=== PATIENT | male | born 1965 | race Caucasian/White ===

== ENCOUNTER → 2019-05-11 13:39 | Outpatient (BNVA) | payer MEDICARE, MEDICAID, SELFPAY | PROVIDERS: PCP Nurse Practitioner Family; Visit Provider Anesthesiology | DX: M54.16 Radiculopathy, lumbar region (principal); M79.651 Pain in right thigh; M79.652 Pain in left thigh; F17.220 Nicotine dependence, chewing tobacco, uncomplicated; Z79.891 Long term (current) use of opiate analgesic; Z71.6 Tobacco abuse counseling | CPT/HCPCS: 99214 ==

== ENCOUNTER 2019-06-15 07:53 | Outpatient (CLI) | payer MEDICARE, MEDICAID, SELFPAY ==
--- NOTE | 2019-06-15 | US_ITS ---
WS: [id number] ULTRASOUND ABDOMEN LIMITED CLINICAL INFORMATION: RUQ PAIN COMPARISON: None. FINDINGS: Technically limited examination due to overlying bowel gas. Liver Size: Hepatomegaly. Craniocaudal length: 17.8 cm. Echogenicity: Coarse hepatic echogenicity consistent with fatty infiltration. Surface nodularity: None. Mass (size and location): None. Gallbladder Normal as visualized Gallstones: None. Gallbladder sludge: None. Gallbladder wall thickening: None. Pericholecystic fluid: None. Sonographic Peralta sign: Absent. Pancreas Not well seen Right kidney: Normal. Hydronephrosis: None. Size: 11.3 cm x 5.1 cm x 5.5 cm. Abdominal aorta and IVC Visualized portions are normal. Ascites: None. US/US abdomen limited [id number] IMPRESSION: 1. Hepatomegaly with diffuse fatty infiltration. 2. Gallbladder normal as visualized. 3. Common bile duct not visualized. 4. No hydronephrosis in right kidney.
== END 2019-06-15 07:54 | disposition home or self-care (01) ==
LOC: RADWPI 07:59
PROVIDERS: PCP Nurse Practitioner Family; Visit Provider Nurse Practitioner Family
DX: R10.11 Right upper quadrant pain (principal); K76.0 Fatty (change of) liver, not elsewhere classified
CPT/HCPCS: 76705

== ENCOUNTER 2019-07-04 11:52 | Outpatient (CLI) | payer MEDICARE, MEDICAID, SELFPAY ==
--- NOTE | 2019-07-04 11:58 | XR_ITS ---
WS: [id number] XR chest 2V* [id number] REASON FOR EXAM: PERSISTENT COUGH FINDINGS: The heart and mediastinal interfaces are normal. The lung martell are well aerated no pneumonia, pleural effusion, pulmonary edema, or mass effect. The hilum and apices are normal. No osseous abnormalities. XR/XR chest 2V* [id number] IMPRESSION: No acute pulmonary infiltrates.
== END 2019-07-04 11:53 | disposition home or self-care (01) ==
LOC: RAD 11:56
PROVIDERS: PCP Nurse Practitioner Family; Visit Provider Nurse Practitioner Family
DX: R05 Cough (principal)
CPT/HCPCS: 71046

== ENCOUNTER → 2019-08-02 10:22 | Outpatient (BNVA) | payer MEDICARE, MEDICAID, SELFPAY | PROVIDERS: PCP Nurse Practitioner Family; Visit Provider Anesthesiology | DX: M54.16 Radiculopathy, lumbar region (principal); M54.9 Dorsalgia, unspecified; F17.220 Nicotine dependence, chewing tobacco, uncomplicated; Z79.891 Long term (current) use of opiate analgesic; Z71.6 Tobacco abuse counseling | CPT/HCPCS: 99214 ==

== ENCOUNTER → 2019-10-18 09:48 | Outpatient (BNVA) | payer MEDICARE, MEDICAID, SELFPAY | PROVIDERS: PCP Nurse Practitioner Family; Visit Provider Anesthesiology | DX: M54.42 Lumbago with sciatica, left side (principal); M54.41 Lumbago with sciatica, right side; M54.16 Radiculopathy, lumbar region; M54.9 Dorsalgia, unspecified; F17.220 Nicotine dependence, chewing tobacco, uncomplicated; Z79.891 Long term (current) use of opiate analgesic | CPT/HCPCS: 99213; 99214 ==

== ENCOUNTER → 2019-12-07 14:53 | Outpatient (BNVA) | payer MEDICARE, MEDICAID, SELFPAY | PROVIDERS: PCP Nurse Practitioner Family; Referring Provider Nurse Practitioner Family; Visit Provider Internal Medicine | DX: E11.319 Type 2 diabetes mellitus with unspecified diabetic retinopathy without macular edema (principal); E11.43 Type 2 diabetes mellitus with diabetic autonomic (poly)neuropathy; E66.9 Obesity, unspecified; E78.5 Hyperlipidemia, unspecified; K31.84 Gastroparesis; R63.5 Abnormal weight gain | CPT/HCPCS: 99205 ==

== ENCOUNTER → 2019-12-21 09:44 | Outpatient (BNVA) | payer MEDICARE, MEDICAID, SELFPAY | PROVIDERS: PCP Nurse Practitioner Family; Visit Provider Internal Medicine | DX: E11.319 Type 2 diabetes mellitus with unspecified diabetic retinopathy without macular edema (principal); E11.43 Type 2 diabetes mellitus with diabetic autonomic (poly)neuropathy; E66.9 Obesity, unspecified; E78.5 Hyperlipidemia, unspecified; K31.84 Gastroparesis; R63.5 Abnormal weight gain | CPT/HCPCS: 99214 ==

== ENCOUNTER → 2019-12-30 10:30 | Outpatient (BNVA) | payer MEDICARE, MEDICAID, SELFPAY | PROVIDERS: PCP Nurse Practitioner Family; Referring Provider Anesthesiology; Visit Provider Anesthesiology | DX: M54.16 Radiculopathy, lumbar region (principal); M54.9 Dorsalgia, unspecified; Z79.891 Long term (current) use of opiate analgesic | CPT/HCPCS: 99212; 99214 ==

== ENCOUNTER → 2020-02-07 14:52 | Outpatient (BNVA) | payer MEDICARE, MEDICAID, SELFPAY | PROVIDERS: PCP Nurse Practitioner Family; Visit Provider Podiatrist Foot & Ankle Surgery | DX: M19.071 Primary osteoarthritis, right ankle and foot (principal); M21.6X1 Other acquired deformities of right foot; M21.6X2 Other acquired deformities of left foot; M25.371 Other instability, right ankle; M25.372 Other instability, left ankle; M20.42 Other hammer toe(s) (acquired), left foot | CPT/HCPCS: 73610; 77077 ==

== ENCOUNTER → 2020-02-27 13:56 | Outpatient (BNVA) | payer MEDICARE, MEDICAID, SELFPAY | PROVIDERS: PCP Nurse Practitioner Family; Visit Provider Internal Medicine | DX: E11.319 Type 2 diabetes mellitus with unspecified diabetic retinopathy without macular edema (principal); E11.43 Type 2 diabetes mellitus with diabetic autonomic (poly)neuropathy; E66.9 Obesity, unspecified; E78.5 Hyperlipidemia, unspecified; K31.84 Gastroparesis; R63.5 Abnormal weight gain; T14.8XXA Other injury of unspecified body region, initial encounter | CPT/HCPCS: 99214 ==

== ENCOUNTER → 2020-03-15 13:54 | Outpatient (BNVA) | payer MEDICARE, MEDICAID, SELFPAY | PROVIDERS: PCP Nurse Practitioner Family; Visit Provider Podiatrist Foot & Ankle Surgery | DX: S92.351A Displaced fracture of fifth metatarsal bone, right foot, initial encounter for closed fracture (principal); X58.XXXA Exposure to other specified factors, initial encounter; M19.071 Primary osteoarthritis, right ankle and foot | CPT/HCPCS: 73630 ==

== ENCOUNTER → 2020-03-23 14:50 | Outpatient (BNVA) | payer MEDICARE, MEDICAID, SELFPAY | PROVIDERS: PCP Nurse Practitioner Family; Visit Provider Podiatrist Foot & Ankle Surgery | DX: M21.6X1 Other acquired deformities of right foot (principal); M21.6X2 Other acquired deformities of left foot; M25.371 Other instability, right ankle; M25.372 Other instability, left ankle; M21.611 Bunion of right foot; L60.3 Nail dystrophy; M21.612 Bunion of left foot | CPT/HCPCS: 73630 ==

== ENCOUNTER → 2020-04-05 13:07 | Outpatient (BNVA) | payer MEDICARE, MEDICAID, SELFPAY | PROVIDERS: PCP Nurse Practitioner Family; Visit Provider Internal Medicine | DX: E11.319 Type 2 diabetes mellitus with unspecified diabetic retinopathy without macular edema (principal); E11.43 Type 2 diabetes mellitus with diabetic autonomic (poly)neuropathy; E66.9 Obesity, unspecified; K31.84 Gastroparesis; T14.8XXA Other injury of unspecified body region, initial encounter | CPT/HCPCS: 99214 ==

== ENCOUNTER → 2020-04-13 12:56 | Outpatient (BNVA) | payer MEDICARE, MEDICAID, SELFPAY | PROVIDERS: PCP Nurse Practitioner Family; Visit Provider Nurse Practitioner | DX: G89.29 Other chronic pain (principal); M54.16 Radiculopathy, lumbar region; M54.9 Dorsalgia, unspecified; F17.210 Nicotine dependence, cigarettes, uncomplicated; Z79.891 Long term (current) use of opiate analgesic | CPT/HCPCS: 99213 ==

== ENCOUNTER → 2020-05-02 14:18 | Outpatient (BNVA) | payer MEDICARE, MEDICAID, SELFPAY | PROVIDERS: PCP Nurse Practitioner Family; Visit Provider Internal Medicine | DX: E11.319 Type 2 diabetes mellitus with unspecified diabetic retinopathy without macular edema (principal); E11.43 Type 2 diabetes mellitus with diabetic autonomic (poly)neuropathy; E66.9 Obesity, unspecified; K31.84 Gastroparesis; T14.8XXA Other injury of unspecified body region, initial encounter | CPT/HCPCS: 99213 ==

== ENCOUNTER 2020-05-16 15:21 | Outpatient (CLI) | payer MEDICARE, MEDICAID, SELFPAY ==
--- NOTE | 2020-05-16 15:32 | XR_ITS ---
WS: [id number] Bone mineral density performed on a [place], 05/16/2020 Clinical data: fractures Findings: Measurement of the left radius reveals a bone mineral density of 0.995 g/sq cm for young adult T scor e of 0.1 Measurement of the left hip reveals a bone mineral density of 1.118 g/cm2 with a young adult T score of 0.1. Measurement of the right hip reveals the bone mineral density of 1.146 g/cm2 for young adult T score of 0.3. XR/XR DEXA axial skeleton* 91003 Impression: Normal bone mineral density of both hips and the left radius.
== END 2020-05-16 15:22 | disposition home or self-care (01) ==
LOC: RADWPI 15:26
PROVIDERS: PCP Nurse Practitioner Family; Visit Provider Internal Medicine
DX: M84.40XA Pathological fracture, unspecified site, initial encounter for fracture (principal); X58.XXXA Exposure to other specified factors, initial encounter
CPT/HCPCS: 77080

== ENCOUNTER → 2020-05-23 12:03 | Outpatient (BNVA) | payer MEDICARE, MEDICAID, SELFPAY | PROVIDERS: PCP Nurse Practitioner Family; Visit Provider Podiatrist Foot & Ankle Surgery | DX: M79.673 Pain in unspecified foot (principal) | CPT/HCPCS: 73630 ==

== ENCOUNTER → 2020-06-22 12:48 | Outpatient (BNVA) | payer MEDICARE, MEDICAID, SELFPAY | PROVIDERS: PCP Nurse Practitioner Family; Visit Provider Nurse Practitioner | DX: M54.16 Radiculopathy, lumbar region (principal); M54.9 Dorsalgia, unspecified; E66.9 Obesity, unspecified; F17.210 Nicotine dependence, cigarettes, uncomplicated; Z79.891 Long term (current) use of opiate analgesic; Z71.6 Tobacco abuse counseling | CPT/HCPCS: 99214 ==

== ENCOUNTER → 2020-08-16 14:35 | Outpatient (BNVA) | payer MEDICARE, MEDICAID, SELFPAY | PROVIDERS: PCP Nurse Practitioner Family; Visit Provider Podiatrist Foot & Ankle Surgery | DX: Q66.221 Congenital metatarsus adductus, right foot (principal); Q66.222 Congenital metatarsus adductus, left foot; M25.371 Other instability, right ankle; M25.372 Other instability, left ankle; E11.65 Type 2 diabetes mellitus with hyperglycemia; Z79.4 Long term (current) use of insulin; L60.3 Nail dystrophy | CPT/HCPCS: 73610; 73630 ==

== ENCOUNTER → 2020-08-17 09:28 | Outpatient (BNVA) | payer MEDICARE, MEDICAID, SELFPAY | PROVIDERS: PCP Nurse Practitioner Family; Visit Provider Podiatrist Foot & Ankle Surgery | DX: Z20.822 Contact with and (suspected) exposure to COVID-19 (principal) | CPT/HCPCS: 87635 ==

== ENCOUNTER 2020-08-22 08:44 | Outpatient (CLI) | payer MEDICARE, MEDICAID, SELFPAY ==
--- NOTE | 2020-08-22 08:45 | USCV_ITS ---
Sarah Ruiz Age: 55 Gender: M : 1965 Exam Date: 08/22/2020 08:59 Ordering Phys: Cody Leal DPM Technologist: [place] [facility] [place] Indication: PAD RIGHT LEFT Brachial 147.00 mmHg Brachial 150.00 mmHg Pressure (mmHg) Waveform Pressure (mmHg) Waveform 147.00 Above Knee 150.00 151.00 Below Knee 173.00 143.00 REFERENCE ASSISTANT 162.00 152.00 DPA 156.00 1.00 Ankle/Brachial Index 1.10 145.00 Pre-Exercise Toe Pressure 97.00 1.00 Pre-Exercise Toe/Brachial Index 0.68 FINDINGS Resting ABIs bilaterally No resting TBI's bilaterally Normal PVR waveforms CONCLUSIONS No evidence of any significant arterial obstruction, based on the above findings. Dr Suzy Quigley MD [facility] (Electronically Signed) Final Date: 23 August 2020 17:25 S
--- NOTE | 2020-08-22 09:04 | CT_ITS ---
WS: [id number] CT RIGHT FOOT NONCONTRAST. 3-D RECONSTRUCTIONS. HISTORY: foot pain Technique: All CT scans at [facility] use at least one of these dose optimization techniq ues: automated exposure control; mA and/or kV adjustment per patient size (includes targeted exams wh ere dose is matched to clinical indication); or iterative reconstruction. DLP: 172.75 mGy.cm COMPARISON: RIGHT foot radiographs 08/16/2020 There is marked foot inversion and rotation as compared to the ankle. Widening of the lateral tibiota lar joint space to 6.3 mm. There is encroachment of the distal fibula into the lateral tibiotalar sienna nt space. No fracture of the distal fibula. Well-corticated fragment at the medial malleolus is proba janusz from an old fracture from the medial malleolus. There is a large amount of soft tissue edema and a joint effusion greatest along the medial joint space. Alignment between the talus and calcaneus appears normal. Nonunion probably secondary to a prior frac ture involving the fifth proximal metatarsal. There is a bone gap measuring 12 mm. Additional subchon dral cystic changes at the tarsal metatarsal articulations. Joint spaces between the talar bones are narrowed. There is a significant amount of soft tissue edema surrounding the foot. CT/CT foot RT wo con* 73690 IMPRESSION: 1. Significant chronic inversion of the RIGHT foot. 2. Widening of the lateral tibiotalar joint space to 6.3 mm with partial invag ination of the distal fibula into the joint space. 3. Nonunion fracture involving the proximal fifth metatarsal. 4. Multiple erosions involving the tarsometatarsal joint line. 5. Remote fracture medial malleolus.
== END 2020-08-22 08:45 | disposition home or self-care (01) ==
LOC: RAD 08:46
PROVIDERS: PCP Nurse Practitioner Family; Visit Provider Podiatrist Foot & Ankle Surgery
DX: Z01.818 Encounter for other preprocedural examination (principal); S92.351A Displaced fracture of fifth metatarsal bone, right foot, initial encounter for closed fracture; S82.51XA Displaced fracture of medial malleolus of right tibia, initial encounter for closed fracture; X58.XXXA Exposure to other specified factors, initial encounter; M85.871 Other specified disorders of bone density and structure, right ankle and foot; I73.9 Peripheral vascular disease, unspecified
CPT/HCPCS: 73700; 93923

== ENCOUNTER 2020-08-24 06:04 | Day surgery (SDC) | payer MEDICARE, MEDICAID, SELFPAY ==
[2020-08-23 16:28] VITALS: BMI 38.2
[2020-08-24] VITALS (12 sets, daily range): BP systolic 113–140; BP diastolic 66–92; PULSE 82–92; RESP 15–23; TEMP 36.1–36.2; O2SAT 92–98
--- NOTE | 2020-08-24 | SCC_ITS ---
Procedure Done: Right subtalar joint arthrodesis, calcaneal cuboid arthrodesis right foot, open reduction internal fixation right fifth metatarsal, posterior tibial tendon transfer, right, right Achilles tendon lengthening. CPT codes 33770, 54455, 61229, 94776, 79533 58.1 seconds of fluoroscopic guidance, for a cumulative dose of 1.63 mGy, was provided to Dr. Leal by the radiology department. C-arm images of the RIGHT foot were saved for the patient's permanent record. RANJEETD
--- NOTE | 2020-08-24 | XR_ITS ---
WS: [id number] Right foot, C-arm fluoroscopy, 08/24/2020 Clinical Data: [facility] Comparison: Right foot, 08/16/2020. Findings: The patient has had a fusion of the talus and calcaneus with 2 screws. There is a lateral fusion of t he calcaneus and navicular with 2 plates each held with 2 screws. There is reduction of an old fractu re of the base of the right fifth metatarsal with a plate held with multiple screws. XR/XR foot RT 2V 01616 Impression: 1. Fusion of the talus and calcaneus of the right foot 2. Fusion of the calcaneus and navicular of the right foot.. 3. Reduction of fracture of base of right fifth metatarsal.
[2020-08-24 06:47] LABS: Glucose Point of Care 354 mg/dL (70-110)
[2020-08-24 06:54] LABS: Basophils # 0.1 10^3/uL (0.0-0.1); Basophils % 0.9 %; Eosinophils # 0.3 10^3/uL (0.0-0.8); Eosinophils % 4.8 %; Hematocrit 46.2 % (42.0-52.0); Hemoglobin 15.2 g/dL (11.7-16.6); Lymphocytes # 1.8 10^3/uL (0.8-4.8); Lymphocytes % 33.5 %; Mean Corpuscular HGB Conc 32.9 g/dL (30.0-36.0); Mean Corpuscular Hemoglobin 27.1 pg (28.0-34.0); Mean Corpuscular Volume 82.4 fL (80-94); Mean Platelet Volume 10.6 fL (7.4-10.4); Monocytes # 0.7 10^3/uL (0.2-0.9); Monocytes % 12.6 %; Neutrophils # 2.59 10^3/uL (1.8-7.7); Nucleated Red Blood Cells % 0 %; Platelet Count 265 10^3/cmm (130-400); Red Blood Count 5.61 10^6/uL (4.1-5.3); Red Cell Distribution Width 13.1 % (12.1-15.1); White Blood Count 5.4 10^3/uL (4.0-10.0)
--- NOTE | 2020-08-24 06:57 | P.ANESASSM_ITS ---
Pre-Anesthetic Assessment Pre-Anesthetic Assessment: Height/Weight: Height 1.8 m Weight 124.284 kg Preop Diagnosis: Calcaneal varus, ankle contracture, fifth metatarsal fracture all right Proposed Procedure: Operation Date: 08/24/20 08:05 Proposed Procedures p Subtalar joint fusion, calcaneocuboid fusion 84584 36612 68101 47942 40825 Q66.221 T14.8XXA(Right) - TAISHA Oseguera ORIF Metatarsal(Right) - TAISHA Oseguera posterior tibial tendon transfer(Right) - TAISHA Oseguera achilles tendon lengthening possible medial column lengthening(Right) - Cody Leal DPM Familial anesthetic complications: None Was Beta Leslie taken within 24 hours: Yes Was Clonidine taken within 24 hours: N/A Last intake: Intake Last Liquid Date 08/23/20 Last Liquid Time 23:59 Last Solid Date 08/23/20 Last Solid Time 23:59 Social: Social History: Tobacco Comment: chews Exam: Pre-Anes Outpt Exam: alert, oriented x 3, clear to auscultation bilaterally and regular rate & rhythm Airway: Cervical ROM: WNL MP: 4 Dentition: Other (missing) Additional comments: Large neck circumference and large tongue Pulmonary: Pulmonary: COPD CV/HEM: CV/HEM: HTN GI: GI: GERD Metabolic: Metabolic: DM and Hyperlipidemia Anesthetic Plan: Anesthesia: General and Regional (specify below) Risk of > 500 ml blood loss (7ml/kg in children): No PFSH Anesthesia PFSH: Medical History Accelerated essential hypertension Asthma Chronic lumbar radiculopathy Chronic nausea Diabetic gastroparesis Encounter for long-term use of opiate analgesic Eustachian tube dysfunction GERD (gastroesophageal reflux disease) History of Helicobacter infection Hyperlipidemia Opioid contract exists Severe obstructive sleep apnea Smokeless tobacco use Type 2 diabetes mellitus with neuropathy Surgical History Hx of knee surgery Hx of shoulder surgery Previous back surgery Family History Grandmother Diabetes Cancer Heart disease Brother Diabetes Social History Smoking and tobacco status: never smoked Second hand smoke exposure: No Alcohol intake: current Alcohol intake frequency: holidays/special occasions only Current occupational status: disabled History of recent travel: No Data Anesthesia CBC & Chem 7: 08/24/20 06:42 08/24/20 06:42 Other Labs: Laboratory Results - last 48 hr 08/24/20 08/24/20 06:39 06:42 WBC 5.4 RBC 5.61 H Hgb 15.2 Hct 46.2 MCV 82.4 MCH 27.1 L MCHC 32.9 RDW 13.1 Plt Count 265 MPV 10.6 H Neut % (Auto) 48.0 Lymph % (Auto) 33.5 Campbell % (Auto) 12.6 Eos % (Auto) 4.8 Baso % (Auto) 0.9 Neut # (Auto) 2.59 Lymph # (Auto) 1.8 Campbell # (Auto) 0.7 Eos # (Auto) 0.3 Baso # (Auto) 0.1 Nucleated RBC % (auto) 0 Nucleated RBCs # 0.0 POC Glucose 354 H Cardiac Studies: No Data to Display
[2020-08-24 07:44] LABS: Anion Gap 15.9 (5-19); Blood Urea Nitrogen 22 mg/dL (6-20); Calcium 9.4 mg/dL (8.5-10.5); Carbon Dioxide 28 mmol/L (22-29); Chloride 98 mmol/L (98-107); Glomerular Filtration Rate 69.8 mL/min (90-130); Glucose 345 mg/dL (65-115); Osmolality Calculated 303 mOsm/kg (285-295); Potassium 3.9 mmol/L (3.5-5.1); Sodium 138 mmol/L (136-145)
[2020-08-24] MEDS: insulin regular-human 100 units/1 mL 10 UNIT IVP (07:46)
[2020-08-24] MEDS: sodium chloride 0.9% 1,000 ML 30 ML IV (07:50)
--- NOTE | 2020-08-24 08:11 | ANES.PROC ---
Anesthesia Procedures Procedure/Date: 08/24/20 Nerve Block ^: Nerve Block 1: Main Anesthesia: general anesthesia Time Out Performed: Yes Consent: requested by attending/covering physician, from patient, risks and benefits reviewed and patient agrees to proceed Nerve block location: popliteal (R ) Anesthesia monitors applied: pulse oximetry, EKG, BP cuff and oxygen Nerve block position: supine Anesthetic Used: ropivicaine 0.5% and with decadron (4 mg) Amount of anesthesia used (mL): 30 Nerve Stimulator Used?: No Interscalene/Femoral BLK: 4 stimuplex 21 g needle used for position and inplane approach, visualize local anesthetic spread and no vascular puncture identified Injection: neg aspiration of heme Complications: none
--- NOTE | 2020-08-24 08:18 | W.PM.OPSUD ---
Surgery/Procedure H&P Update DATE OF PROCEDURE: August 24, 2020 DATE H&P PERFORMED: 08/23/20 H&P UPDATE INFORMATION: I have reviewed H&P completed within last 30 days, I have examined patient prior to procedure and No changes to prior documentation PREOP DIAGNOSIS: Calcaneal varus, ankle contracture, fifth metatarsal fracture all right PLANNED PROCEDURE: Operation Date: 08/24/20 08:05 Proposed Procedures p Subtalar joint fusion, calcaneocuboid fusion 33167 59269 18918 87919 79290 Q66.221 T14.8XXA(Right) - TAISHA Oseguera ORIF Metatarsal(Right) - TAISHA Oseguera posterior tibial tendon transfer(Right) - TAISHA Oseguera achilles tendon lengthening possible medial column lengthening(Right) - Cody Leal DPM
[2020-08-24] MEDS: ceFAZolin 3,000 MG in sodium chloride 0.9% (100 ml) 100 ML 200 MG IV (08:53)
--- NOTE | 2020-08-24 09:15 | PC.NURSE ---
spoke with patient's to let her know we have started and everything going well thus far. will update hourly
--- NOTE | 2020-08-24 10:17 | PC.NURSE ---
SPOKE WITH PATIENT'S AND GAVE HER AN UPDATE
--- NOTE | 2020-08-24 11:04 | PC.NURSE ---
SPOKE WITH SAMMY AND GAVE HER AN UPDATE
--- NOTE | 2020-08-24 12:06 | PC.NURSE ---
SPOKE WITH TO TELL HER WE ARE CLOSING
--- NOTE | 2020-08-24 12:39 | XR_ITS ---
WS: [id number] Right foot, 2 views, 08/24/2020 Clinical Data: post op Comparison: Right foot, 08/16/2020. Findings: The fracture of the base of the right fifth metatarsal has been reduced with a plate and multiple scr ews. There is an fusion laterally between the navicular and the talus. The talus and navicular are fused w ith 2 large orthopedic screws. XR/XR foot RT 2V 71011 Impression: Complex reduction of the right fifth metatarsal and fusion of the right talus, calcaneus and navicular of the foot.
--- NOTE | 2020-08-24 12:39 | XR_ITS ---
WS: [id number] Right ankle, 3 views, 08/24/2020 Clinical Data: post op Comparison: Right ankle, 08/16/2020. Findings: The patient has had a fusion of the talus and calcaneus with 2 orthopedic screws. There is a lateral plate applied to the navicular and calcaneus with orthopedic screws. There is a plate at the base of the right fifth metatarsal reducing an old fracture. XR/XR ankle RT min 3V* 01995 Impression: Fusion of the talus to the calcaneus and calcaneus to the navicular along with reduction of an old right fifth metatarsal fracture.
--- NOTE | 2020-08-24 12:41 | P.PCN_ITS ---
PACU note PACU note: VSS, Good respiratory effort, report to AUTOMOBILE CLUB TRAVEL COUNSELOR Post-Anesthesia Exam: awake
--- NOTE | 2020-08-24 12:41 | PM.PACU ---
PACU note PACU note: VSS, Good respiratory effort, report to STALLION KEEPER Post-Anesthesia Exam: awake
[2020-08-24] MEDS: ondansetron 2 mg/ML SDV 2 mL 4 MG IVP (13:37)
--- NOTE | 2020-08-24 14:02 | P.OP_ITS ---
Operative Report Date of procedure: August 24, 2020 Pre-op Diagnosis: Calcaneal varus, ankle contracture, fifth metatarsal fracture all right Post-op diagnosis: same Post-op Findings: Same Procedure Done: Right subtalar joint arthrodesis, calcaneal cuboid arthrodesis right foot, open reduction internal fixation right fifth metatarsal, posterior tibial tendon transfer, right, right Achilles tendon lengthening. CPT codes 45776, 36112, 18845, 64204, 91314 Implants: 3-0 nylon, 4-0 nylon, 2-0 Vicryl, 4-0 Vicryl, [place] 28 nitinol staple x2, [place] 28 fifth metatarsal hook plate, [place] 28 locking screws for hook plate, [place] 28 7 mm subtalar joint screws. Pathology: none sent Surgeon: Cody Leal D.P.M. Grinding Wheel Inspector: Mary Kate Anesthesia: General Estimated blood loss: Less than 50 mL Tourniquet time: See intraoperative documentation IV fluids: None Urine output: None Condition: stable Disposition: PACU Brief History: Patient is a pleasant 55 semireducible cavovarus foot type, Wright fracture and ankle equinus. This is debilitated his ability to walk, his goal is to be able to correct his foot so he can perform everyday activities again, his deformity was also unbreakable, [place] boot and AFO immediately caused the sores and rubbing. Risks include pain, bleeding, numbness, infection, hardware failure, hardware irritation, delayed union, malunion, nonunion, failure to correct deformity, overcorrection of deformity, chronic swelling, surgical site dehiscence, altered mechanics, pressure sores, need for further surgical intervention. Also inherent risks associate with anesthesia, risk for deep vein thrombosis, pulmonary embolism, heart attack, stroke and . Procedure: Under mild sedation and placed on the operating table in supine position. A timeout was performed. Anesthesia was then administered by the anesthesia service. Popliteal block performed preoperatively also for anesthesia. Well-padded pneumatic tourniquet applied to the right thigh. Right lower extremity was then scrubbed, prepped and draped utilizing normal aseptic technique. Right lower extremity was then examined a weighted with an Esmarch bandage and the tourniquet inflated to 350 mmHg. Attention was to the posterior leg where the Achilles tendon was palpated. 1.5 cm proximal to its insertion on the posterior calcaneal tubercle a percutaneous incision was performed and a medial hemisection of the Achilles tendon was performed with #15 blade this was repeated in like fashion and 1.5 cm proximal to the original with a lateral hemisection and another 1.5 cm proximal with a medial hemisection, this was a triple hemisection of the Achilles tendon for lengthening which was appreciated intraoperatively with increased dorsiflexion at the ankle joint post lengthening. Stab incisions were flushed with saline and closed with 4-0 nylon and covered with an OpSite. Attention was then directed to the right sinus tarsi where sinus tarsi incision was performed to access the subtalar joint. This is a curvilinear incision with a #15 blade through skin with care taken during dissection through subcutaneous tissue and fat layer, care was taken to retract and preserve neurovascular tendinous structures. All bleeders were ligated and cauterized as necessary. Extensor digitorum brevis muscle was elevated out of the sinus tarsi followed by self-retaining distractor to access the subtalar joint was then prepared for arthrodesis by denuding all articular surface and penetrating subchondral plate. This was flushed with saline solution followed by subchondral drilling, subtalar joint was shifted into neutral and fixated for arthrodesis utilizing [place] 28 7 mm screws x2 perpendicular to the posterior facet this was confirmed with intraoperative C arm both foot and ankle views noted to be excellent in all 3 planes. Attention was then directed to the calcaneal cuboid joint through the same incision which was also prepared for arthrodesis by denuding all articular surface and penetrating subchondral plate with sharp instrumentation including osteotome and bone curette. Incision was flushed and subchondral drilling performed with a 2 mm subchondral drill bit. Calcaneocuboid joint was compressed and fixated utilizing 2 [place] 28 nitinol ayden with excellent bony apposition and compression noted. Attention was then directed to the dorsal lateral aspect of the fifth metatarsal where a linear longitudinal incision was made with a #15 blade which was carried down through skin and subcutaneous tissue followed by blunt dissection down to periosteum care was taken to retract and preserve neurovascular tendinous structures. All bleeders were ligated and cauterized as necessary. Periosteal incision was made in the nonunion that was fibrous was evacuated from the fifth metatarsal fracture this was then reduced utilizing a [place] 28 hook plate and fixated utilizing locking screws within the plate with excellent bony apposition and compression noted there were 3 screws proximal to screws distal with positioning confirmed on fluoroscopy in all 3 planes noted to be improved. Incisions were flushed with saline solution and retinaculum of the structures closed utilizing 2-0 Vicryl, subcutaneous tissue closed utilizing 4-0 Vicryl and skin closed utilizing accommodation of 3-0 and 4-0 nylon. Incision was dressed with Adaptic, Unna boot, Kerlix, Donnie wrap and multilayer compressive posterior splint with ankle stirrup. Tourniquet was deflated and a prompt hyperemic response was noted to the distal digits of the right foot. Patient tolerated the procedure and anesthesia well and was transferred to the PACU with vital signs stable and vascular status intact. Following a period of postop monitoring he will be discharged home was given a prescription for pain medication to be taken judiciously as needed for pain, he is to elevate his right foot at all times while at rest and to remain strict nonweightbearing to the right lower extremity has a wheelchair and a bedside commode, also be administering Lovenox for deep vein thrombosis prophylaxis.
--- NOTE | 2020-08-24 14:23 | SUR.PHASEI ---
1315pt awake alert to ops per cart, pt with NCAT 3LNC BEDSIDE REPORT IN PACU WITH OPS NURSE. X RAYS DONE EARLIER , FOOT UP ON PILLOW DISTAL TOES PINK WARM WITH CAP REFILL LESS THAN 3 SECONDS.
[2020-08-24 14:37] LABS: Glucose Point of Care 267 mg/dL (70-110)
--- NOTE | 2020-08-24 16:25 | ANE.PACU2 ---
Inpatient post-anesthesia follow up: Airway intact: Yes Vital signs: Temperature 97.1 F Pulse Rate 89 Respiratory Rate 18 Blood Pressure 129/70 Pulse Oximetry 94 Oxygen Delivery Me thod Room Air Oxygen Flow Rate 2 Fraction of Inspir ed Oxygen Nausea and vomiting: No Pain level: 2 Mental status: Baseline
== END 2020-08-24 14:22 | disposition home or self-care (01) ==
PROVIDERS: Anesthesiology; PCP Nurse Practitioner Family; Visit Provider Podiatrist Foot & Ankle Surgery
PROC: (CPT 28750; principal; 2020-08-24 07:55)
PROC: (CPT 28485; 2020-08-24 07:55)
PROC: (CPT 27691; 2020-08-24 07:55)
PROC: (CPT 28261; 2020-08-24 07:55)
DX: M21.171 Varus deformity, not elsewhere classified, right ankle (principal); M24.571 Contracture, right ankle; S92.351A Displaced fracture of fifth metatarsal bone, right foot, initial encounter for closed fracture; X58.XXXA Exposure to other specified factors, initial encounter; F17.220 Nicotine dependence, chewing tobacco, uncomplicated; J44.9 Chronic obstructive pulmonary disease, unspecified; I10 Essential (primary) hypertension; K21.9 Gastro-esophageal reflux disease without esophagitis; E78.5 Hyperlipidemia, unspecified; E11.40 Type 2 diabetes mellitus with diabetic neuropathy, unspecified; Z82.49 Family history of ischemic heart disease and other diseases of the circulatory system; Z83.3 Family history of diabetes mellitus
CPT/HCPCS: 27606; 27691; 28485; 28725; 28740; 36416; 64450; 73610; 73620; 76000; 76942; 80048; 82962; 85025; 96372; 96374; C1713; C1762; J0330; J0690; J1100; J1815; J2405; J2704; J2795; J3010; J3490; J7030

== ENCOUNTER 2020-08-31 10:43 | Outpatient (CLI) | payer MEDICARE, MEDICAID, SELFPAY ==
--- NOTE | 2020-08-31 10:49 | XR_ITS ---
WS: [id number] Right foot, 3 views, 08/31/2020 Clinical Data: post op follow up Comparison: Left foot, 08/24/2020. Findings: The fusion of the calcaneus to the navicular with a lateral plate and screws is again seen. There is a fusion of the talus and calcaneus. There is internal fixation of the distal right fifth metatarsal fracture with plate and screws. There is a bunion at the head of the right first metatarsal. XR/XR foot RT min 3V* 35785 Impression: No change from previous right foot x-ray.
== END 2020-08-31 10:44 | disposition home or self-care (01) ==
PROVIDERS: PCP Nurse Practitioner Family; Visit Provider Podiatrist Foot & Ankle Surgery
DX: Z98.890 Other specified postprocedural states (principal)
CPT/HCPCS: 73630

== ENCOUNTER 2020-09-07 14:52 | Outpatient (CLI) | payer MEDICARE, MEDICAID, SELFPAY ==
--- NOTE | 2020-09-07 15:00 | USCV_ITS ---
RuizSarah lee Age: 55 Gender: M : 1965 Exam Date: 09/07/2020 15:04 Ordering Phys: Cody Leal DPM Technologist: Melissa Babb Exam Location: [facility] [place] Indication: RECENT FOOT SURGERY. RT CALF IS WARM AND PAINFUL HISTORY: Recent Rt. foot surgery. Rt calf is warm and painful PROCEDURES: Venous duplex imaging was performed in only the right lower extremity. The following venous structures were evaluated: common femoral vein, profunda vein, proximal portion of the greater saphenous vein, superficial femoral vein, and the popliteal vein. In addition, the posterior tibial and peroneal trunk were evaluated. Serial compression, augmentation maneuvers, and spectral Doppler flow evaluation were performed. FINDINGS: Normal 2-D Doppler and augmentation and compressibility throughout the lower extremity venous structures. Additional imaging through the proximal calf veins also reveals no thrombus. Limited evaluation of the greater saphenous vein is patent with no thrombus. CONCLUSIONS No DVT right lower extremity. Dr. Epseranza Martinez DO (Electronically Signed) Final Date: 07 September 2020 15:42 S
== END 2020-09-07 14:53 | disposition home or self-care (01) ==
PROVIDERS: PCP Nurse Practitioner Family; Visit Provider Podiatrist Foot & Ankle Surgery
DX: M79.661 Pain in right lower leg (principal)
CPT/HCPCS: 93971

== ENCOUNTER → 2020-09-14 10:41 | Outpatient (BNVA) | payer MEDICARE, MEDICAID, SELFPAY | PROVIDERS: PCP Nurse Practitioner Family; Visit Provider Podiatrist Foot & Ankle Surgery | DX: Z98.890 Other specified postprocedural states (principal) | CPT/HCPCS: 73630 ==

== ENCOUNTER → 2020-09-18 11:02 | Outpatient (BNVA) | payer MEDICARE, MEDICAID, SELFPAY | PROVIDERS: PCP Nurse Practitioner Family; Visit Provider Podiatrist Foot & Ankle Surgery | DX: Z98.890 Other specified postprocedural states (principal); M20.12 Hallux valgus (acquired), left foot | CPT/HCPCS: 73630 ==

== ENCOUNTER → 2020-09-27 07:57 | Outpatient (BNVA) | payer MEDICARE, MEDICAID, SELFPAY | PROVIDERS: PCP Nurse Practitioner Family; Visit Provider Anesthesiology | DX: G89.29 Other chronic pain (principal); M54.16 Radiculopathy, lumbar region; M79.673 Pain in unspecified foot; M25.50 Pain in unspecified joint; Z72.0 Tobacco use; Z79.891 Long term (current) use of opiate analgesic | CPT/HCPCS: 99214 ==

== ENCOUNTER → 2020-10-04 08:01 | Outpatient (BNVA) | payer MEDICARE, MEDICAID, SELFPAY | PROVIDERS: PCP Nurse Practitioner Family; Visit Provider Podiatrist Foot & Ankle Surgery | DX: Z98.890 Other specified postprocedural states (principal) | CPT/HCPCS: 73630 ==

== ENCOUNTER → 2020-10-17 15:22 | Outpatient (BNVA) | payer MEDICARE, MEDICAID, SELFPAY | PROVIDERS: PCP Nurse Practitioner Family; Visit Provider Podiatrist Foot & Ankle Surgery | DX: Z98.890 Other specified postprocedural states (principal) | CPT/HCPCS: 73630 ==

== ENCOUNTER → 2020-11-06 15:13 | Outpatient (BNVA) | payer MEDICARE, MEDICAID, SELFPAY | PROVIDERS: PCP Nurse Practitioner Family; Visit Provider Podiatrist Foot & Ankle Surgery | DX: Q66.221 Congenital metatarsus adductus, right foot (principal); Q66.222 Congenital metatarsus adductus, left foot; Z98.890 Other specified postprocedural states | CPT/HCPCS: 73630 ==

== ENCOUNTER → 2020-11-12 08:46 | Outpatient (BNVA) | payer MEDICARE, MEDICAID, SELFPAY | PROVIDERS: PCP Nurse Practitioner Family; Visit Provider Nurse Practitioner Family | DX: R39.11 Hesitancy of micturition (principal); R39.9 Unspecified symptoms and signs involving the genitourinary system | CPT/HCPCS: 81003 ==

== ENCOUNTER → 2020-12-04 13:13 | Outpatient (BNVA) | payer MEDICARE, MEDICAID, SELFPAY | PROVIDERS: PCP Nurse Practitioner Family; Visit Provider Podiatrist Foot & Ankle Surgery | DX: Z98.890 Other specified postprocedural states (principal); Q66.221 Congenital metatarsus adductus, right foot; Q66.222 Congenital metatarsus adductus, left foot; M79.673 Pain in unspecified foot | CPT/HCPCS: 73630 ==

== ENCOUNTER → 2021-01-04 11:26 | Outpatient (BNVA) | payer MEDICARE, MEDICAID, SELFPAY | PROVIDERS: PCP Nurse Practitioner Family; Visit Provider Internal Medicine | DX: G89.29 Other chronic pain (principal); M54.16 Radiculopathy, lumbar region; G62.9 Polyneuropathy, unspecified; Z79.891 Long term (current) use of opiate analgesic; E11.319 Type 2 diabetes mellitus with unspecified diabetic retinopathy without macular edema; E11.65 Type 2 diabetes mellitus with hyperglycemia; E11.43 Type 2 diabetes mellitus with diabetic autonomic (poly)neuropathy; K31.84 Gastroparesis; E66.9 Obesity, unspecified; E78.5 Hyperlipidemia, unspecified; Z79.4 Long term (current) use of insulin; Z79.84 Long term (current) use of oral hypoglycemic drugs; Z68.39 Body mass index [BMI] 39.0-39.9, adult | CPT/HCPCS: 99214 ==

== ENCOUNTER → 2021-01-08 14:25 | Outpatient (BNVA) | payer MEDICARE, MEDICAID, SELFPAY | PROVIDERS: PCP Nurse Practitioner Family; Visit Provider Podiatrist Foot & Ankle Surgery | DX: Q66.221 Congenital metatarsus adductus, right foot (principal); Q66.222 Congenital metatarsus adductus, left foot; M25.371 Other instability, right ankle; M25.372 Other instability, left ankle; Z98.890 Other specified postprocedural states | CPT/HCPCS: 73630 ==

== ENCOUNTER → 2021-02-14 13:07 | Outpatient (BNVA) | payer MEDICARE, MEDICAID, SELFPAY | PROVIDERS: PCP Nurse Practitioner Family; Visit Provider Podiatrist Foot & Ankle Surgery | DX: Z01.818 Encounter for other preprocedural examination (principal) | CPT/HCPCS: 73630 ==

== ENCOUNTER 2021-03-11 12:49 | Outpatient (CLI) | payer MEDICARE, MEDICAID, SELFPAY ==
--- NOTE | 2021-03-11 12:54 | XR_ITS ---
WS: [id number] PROCEDURE: XR chest 2V* [id number] CLINICAL INFORMATION: BRONCHITIS COMPARISON: July 04, 2019 FINDINGS: Heart: Normal cardiac silhouette. Lungs: Both lungs are well aerated. No acute pulmonary infiltrates. No focal pneumonia or pleural flu id. Bones: Normal visualized bony structures. XR/XR chest 2V* 39128 IMPRESSION: No acute pulmonary infiltrates. No focal pneumonia or pleural fluid.
--- NOTE | 2021-03-11 12:55 | XR_ITS ---
WS: [id number] HAND LEFT TECHNIQUE: 3 views of the left hand CLINICAL INFORMATION: FINGER PAIN, LEFR COMPARISON: None. FINDINGS: Normal metacarpals. Normal MCP joint. Slight hypertrophic spurring metacarpal heads. Normal PIP and D IP joints. No evidence of acute fracture or dislocation. Radiocarpal joint: Normal. Carpal bones: Normal. XR/XR hand LT min 3V* 67810 IMPRESSION: Left fifth digit is normal in appearance. No acute fractures.
== END 2021-03-11 12:50 | disposition home or self-care (01) ==
LOC: RAD 12:52
PROVIDERS: PCP Nurse Practitioner Family; Visit Provider Nurse Practitioner Family
DX: J40 Bronchitis, not specified as acute or chronic (principal); M79.645 Pain in left finger(s)
CPT/HCPCS: 71046; 73130

== ENCOUNTER → 2021-11-27 08:59 | Outpatient (BNVA) | payer MEDICARE, MEDICAID, SELFPAY | PROVIDERS: PCP Nurse Practitioner Family; Visit Provider Podiatrist Foot & Ankle Surgery | DX: E11.65 Type 2 diabetes mellitus with hyperglycemia (principal); Z79.4 Long term (current) use of insulin; Q66.221 Congenital metatarsus adductus, right foot; Q66.222 Congenital metatarsus adductus, left foot; M25.371 Other instability, right ankle; M25.372 Other instability, left ankle | CPT/HCPCS: 73630; 99214 ==

== ENCOUNTER 2022-01-09 16:50 | Emergency (ER) | payer MEDICARE, MEDICAID, SELFPAY ==
[2022-01-09 17:11] VITALS: BP 163/108; PULSE 109; RESP 20; TEMP 36.7; O2SAT 91; BMI 43.6
--- NOTE | 2022-01-09 17:21 | ECG_ITS ---
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 Measurements Intervals [place] Rate: 111 P: 38 WY: 167 QRS: -35 QRSD: 94 T: 64 QT: 322 QTc: 439 Interpretive Statements SINUS TACHYCARDIA LEFT AXIS DEVIATION [QRS AXIS < -30] PATTERN CONSISTENT WITH PULMONARY DISEASE Compared to ECG 05/10/2018 22:34:59 Left-axis deviation now present Sinus rhythm no longer present Myocardial infarct finding no longer present Electronically Signed On 01-11-2022 14:03:38 NEURO UROLOGIST by Suzy Quigley M.D. [email or web address] [facility] hospitalM[facility].[id number]
[2022-01-09 17:30] LABS: Glucose Point of Care 257 mg/dL (70-110)
--- NOTE | 2022-01-09 17:59 | CTR_ITS ---
PROCEDURE INFORMATION: Exam: CT Abdomen And Pelvis Without Contrast Exam date and time: 01/09/2022 6:18 PM Age: 56 years old Clinical indication: Abdominal pain; Epigastric; Additional info: Abd pain TECHNIQUE: Imaging protocol: Computed tomography of the abdomen and pelvis without contrast. Radiation optimization: All CT scans at this facility use at least one of these dose optimization techniques: automated exposure control; mA and/or kV adjustment per patient size (includes targeted exams where dose is matched to clinical indication); or iterative reconstruction. COMPARISON: CT abdomen w con* [id number] 01/05/2018 1:29 PM RADIATION DOSE METRICS: Total DLP (mGy-cm): 1656.63 FINDINGS: Liver: Severe fatty infiltration of the liver. Gallbladder and bile ducts: Normal. No calcified stones. No ductal dilation. Pancreas: Normal. No ductal dilation. Spleen: Normal. No splenomegaly. Adrenal glands: Normal. No mass. Kidneys and ureters: Normal. No hydronephrosis. Stomach and bowel: Radiopaque debris in the dependent portion of the gastric fundus. Appendix: No evidence of appendicitis. Intraperitoneal space: Unremarkable. No free air. No significant fluid collection. Vasculature: Calcification of the abdominal aorta and/or iliac arteries consistent with atherosclerotic vessel disease. Lymph nodes: Unremarkable. No enlarged lymph nodes. Urinary bladder: Unremarkable as visualized. Reproductive: Unremarkable as visualized. Bones/joints: Unremarkable. No acute fracture. Soft tissues: Unremarkable. Other findings: Stable postoperative changes over the lumbar spine with metallic fixation and metallic artifact. CT/CT abdomen pelvis con [id number] IMPRESSION: Severe fatty infiltration of the liver.
--- NOTE | 2022-01-09 18:03 | W.ED.ABDPA2 ---
HPI - Abdominal Pain General: Chief Complaint: Abdominal Pain Stated Complaint: abd pain, heart burn Time Seen by Provider: 01/09/22 17:53 Source: patient Mode of arrival: ambulatory Limitations: no limitations History of Present Illness: 56-year-old male states that throughout the day has been having abdominal distention with burning in his abdomen. He states he does have a history of reflux states the pain is burning mainly in the epigastric region he states his abdomen is much more distended than typical rates his pain a 3 out of 10 has had nausea denies vomiting denies diarrhea he denies any fever denies any chest pain. Associated Symptoms: Reports nausea; Denies chills, dysuria and fever(s) Review of Systems Const: Denies: fever(s), chills, body aches or change in appetite Eyes: Denies: blurry vision or eye discomfort ENMT: Denies: throat pain or dental pain Card: Denies: chest pain Resp: Denies: dyspnea GI: Reports: abdominal pain and nausea : Denies: dysuria Musc: Denies: neck pain or back pain Skin/Breast: Denies: rash Neuro: Denies: headache(s) Psych: Denies: depression Charli/Lymph: Denies: easy bruising All/Imm: Denies: urticaria PFSH ED PFSH: Medical History Accelerated essential hypertension Asthma Chronic low back pain Chronic lumbar radiculopathy Chronic nausea Diabetic gastroparesis Encounter for long-term use of opiate analgesic Eustachian tube dysfunction GERD (gastroesophageal reflux disease) History of Helicobacter infection Hyperlipidemia Lower urinary tract symptoms (LUTS) Opioid contract exists Severe obstructive sleep apnea Smokeless tobacco use Type 2 diabetes mellitus with neuropathy Surgical History Hx of knee surgery Hx of shoulder surgery Previous back surgery Family History Grandmother Diabetes Cancer Heart disease Brother Diabetes Social History Smoking and tobacco status: never smoked Second hand smoke exposure: No Alcohol intake: current Alcohol intake frequency: holidays/special occasions only Current occupational status: disabled History of recent travel: No Physical Exam Const: COMMON NORMALS: no acute distress, patient oriented x3 and healthy appearing HENMT: COMMON NORMALS: normocephalic and atraumatic HEAD & SCALP: normocephalic and atraumatic Eye: COMMON NORMALS: Equal, round and reactive pupils present and EOMs intact bilaterally PUPIL: Yes Equal, round and reactive pupils present Neck/C-Spine: COMMON NORMALS: full ROM and supple Chest: COMMONS NORMALS: normal inspection of the chest and normal palpation of entire chest wall Resp: COMMON NORMALS: normal respiratory effort, No retractions, No use of accessory muscles and clear to auscultation bilaterally AUSCULTATION: clear to auscultation bilaterally Cardio: COMMON NORMALS: regular rate, regular rhythm and No murmurs present (Cardio) RATE: regular rate RHYTHM: regular rhythm GI: COMMON NORMALS: Normal to inspection, nondistended, normoactive bowel sounds present, Soft to palpation and no masses PALPATION: Yes Soft to palpation OTHER: mild idffuse tenderness Extremity: COMMON NORMALS: normal to inspection and full ROM Neuro: COMMON NORMALS: patient oriented x3, moves all extremities and no focal motor deficits Psych: COMMON NORMALS: mental status grossly normal, Normal thought process present and cooperative THOUGHT PROCESS: Normal thought process present Skin: COMMON NORMALS: no rashes or lesions noted and no wounds GENERAL SKIN EXAM: no rashes or lesions noted Course Vital Signs: Vital signs: Vital Signs Temperature 98.1 F 01/09/22 17:11 Pulse Rate 109 H 01/09/22 17:11 Respiratory Rate 20 H 01/09/22 17:11 Blood Pressure 163/108 01/09/22 17:11 Pulse Oximetry 91 01/09/22 17:11 Oxygen Delivery Me thod 01/09/22 17:11 MDM - Abdominal Pain Medical Decision Making Patient presents with abdominal pain is likely gastritis his pain is completely resolved after GI cocktail CT scan along with blood work here is all normal. He is on Protonix he is to follow-up with Dr. Wyatt he is return if worsening he understands agrees plan. Lab Data : 01/09/22 18:15 01/09/22 18:15 Labs/Radiology: Radiology Impressions Abdomen/Pelvis CT 01/09/22 17:59 IMPRESSION: Severe fatty infiltration of the liver. Laboratory Results WBC 8.1 10^3/uL (4.0-10.0) 01/09/22 18:15 RBC 5.51 10^6/uL (4.1-5.3) H 01/09/22 18:15 Hgb 16.2 g/dL (11.7-16.6) 01/09/22 18:15 Hct 48.4 % (42.0-52.0) 01/09/22 18:15 MCV 87.8 fl (80-94) 01/09/22 18:15 MCH 29.4 pg (28.0-34.0) 01/09/22 18:15 MCHC 33.5 g/dL (30.0-36.0) 01/09/22 18:15 RDW 13.2 % (12.1-15.1) 01/09/22 18:15 Plt Count 248 10^3/cmm (130-400) 01/09/22 18:15 MPV 10.5 fL (7.4-10.4) H 01/09/22 18:15 Neut % (Auto) 75.2 % 01/09/22 18:15 Lymph % (Auto) 16.0 % 01/09/22 18:15 [place] % (Auto) 6.9 % 01/09/22 18:15 Eos % (Auto) 1.0 % 01/09/22 18:15 Baso % (Auto) 0.5 % 01/09/22 18:15 Neut # (Auto) 6.13 10^3/uL (1.8-7.7) 01/09/22 18:15 Lymph # (Auto) 1.3 10^3/uL (0.8-4.8) 01/09/22 18:15 [place] # (Auto) 0.6 10^3/uL (0.2-0.9) 01/09/22 18:15 Eos # (Auto) 0.1 10^3/uL (0.0-0.8) 01/09/22 18:15 Baso # (Auto) 0.0 10^3/uL (0.0-0.1) 01/09/22 18:15 Nucleated RBC % (auto) 0 % 01/09/22 18:15 Nucleated RBCs # 0.0 /100WBC 01/09/22 18:15 Sodium 136 mmol/L (136-145) 01/09/22 18:15 Potassium 3.6 mmol/L (3.5-5.1) 01/09/22 18:15 Chloride 94 mmol/L (98-107) L 01/09/22 18:15 Carbon Dioxide 31 mmol/L (22-29) H 01/09/22 18:15 Anion Gap 14.6 (5-19) 01/09/22 18:15 BUN 13 mg/dL (6-20) 01/09/22 18:15 Creatinine 1.1 mg/dL (0.7-1.2) 01/09/22 18:15 GFR Calculation 69.5 mL/min (90-130) L 01/09/22 18:15 Glucose 249 mg/dL (65-115) H 01/09/22 18:15 POC Glucose 257 mg/dL (70-110) H 01/09/22 17:16 Calculated Osmolality 290 mOsm/kg (285-295) 01/09/22 18:15 Calcium 9.3 mg/dL (8.5-10.5) 01/09/22 18:15 Total Bilirubin 0.5 mg/dL (0.15-1.2) 01/09/22 18:15 AST 41 U/L (0-40) H 01/09/22 18:15 ALT 43 U/L (0-41) H 01/09/22 18:15 Alkaline Phosphatase 72 U/L (40-130) 01/09/22 18:15 Total Protein 7.1 g/dL (6.6-8.7) 01/09/22 18:15 Albumin 3.7 g/dL (3.5-5.2) 01/09/22 18:15 Globulin 3.4 g/dL (1.3-4.6) 01/09/22 18:15 Lipase 29 U/L (13-60) 01/09/22 18:15 EKG Data EKG 1: I personally reviewed and interpreted this EKG as follows: EKG interpretation date: 01/09/22 EKG interpretation time: 17:23 Interpretation: sinus tach hr [address] or t wave abnormalities qrs 94 qtc 388 Discharge Plan Discharge Patient Disposition: Home Clinical Impression: Abdominal pain Condition: Stable Prescriptions: New hydrocodone-acetaminophen 5-325 mg tablet 1 tab PO Q6H PRN (Reason: pain) Qty: 14 0RF ondansetron 4 mg tablet,disintegrating 4 mg PO Q6H PRN (Reason: nausea and vomiting) Qty: 14 0RF No Action aspirin [Adult Low Dose Aspirin] 81 mg tablet,delayed release (DR/EC) 81 mg PO DAILY cetirizine [All Day Allergy (cetirizine)] 10 mg tablet 10 mg PO DAILY ondansetron HCl [Zofran] 4 mg tablet 4 mg PO Q6H (DME) InPen (for Novolog or Fiasp) Insulin Pen See Rx Instructions .ROUTE .MEDSUPPLY Qty: 1 Rx Instructions: As directed fluticasone propionate [Children's Flonase Allergy Rlf] 50 mcg/actuation spray,suspension 1 spray INTRANASAL DAILY meclizine 25 mg tablet 25 mg PO BID (DME) Wheel Chair See Rx Instructions .Route .MEDSUPPLY Qty: 1 0RF Rx Instructions: As directed budesonide-formoterol [Symbicort] 160-4.5 mcg/actuation HFA aerosol inhaler 2 puff INHALATION BID simvastatin 40 mg tablet 40 mg PO DAILY hydrochlorothiazide 25 mg tablet 25 mg PO DAILY (DME) Dexcom G6 Topology Professor Misc See Rx Instructions .ROUTE .MEDSUPPLY Qty: 1 0RF Rx Instructions: As directed (DME) Dexcom G6 Transmitter Device See Rx Instructions .ROUTE .MEDSUPPLY Qty: 1 0RF Rx Instructions: As directed tizanidine 4 mg tablet 4 mg PO TID PRN (Reason: muscle spasticity) 30 Days Qty: 90 2RF Rx Instructions: // gabapentin 300 mg capsule 300 mg PO TID 30 Days Qty: 90 2RF Rx Instructions: // metoprolol tartrate 25 mg tablet 25 mg PO BID furosemide [Lasix] 20 mg tablet 20 mg PO DAILY diclofenac sodium [Voltaren] 1 % gel 4 g topical QID Qty: 300 2RF Rx Instructions: apply to single knee, ankle, foot; for foot includes sole/toes/top of foot tamsulosin 0.4 mg capsule 0.4 mg PO BID Qty: 180 3RF hydrocodone-acetaminophen 7.5-325 mg tablet 1 tab PO BID PRN (DME) pen needle, diabetic [Lite Touch Insulin Pen Barry] 29 gauge x 1/2 needle See Rx Instructions .ROUTE .MEDSUPPLY Qty: 150 3RF Rx Instructions: As directed pantoprazole 40 mg tablet,delayed release (DR/EC) See Rx Instructions .ROUTE .COMPLEX Qty: 180 0RF Dose Instruction: Take 1 tablet by mouth twice daily Rx Instructions: Take 1 tablet by mouth twice daily mupirocin 2 % ointment 1 applic topical TID Qty: 15 3RF insulin aspart U-100 [Novolog Flexpen U-100 Insulin] 100 unit/mL (3 mL) insulin pen 80 unit SUBCUT TID Qty: 210 3RF Rx Instructions: Inject 80 units 15 minutes before meals three times a day. 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
[2022-01-09 18:31] LABS: Basophils % 0.5 %; Eosinophils # 0.1 10^3/uL (0.0-0.8); Hematocrit 48.4 % (42.0-52.0); Hemoglobin 16.2 g/dL (11.7-16.6); Lymphocytes # 1.3 10^3/uL (0.8-4.8); Mean Corpuscular HGB Conc 33.5 g/dL (30.0-36.0); Mean Corpuscular Hemoglobin 29.4 pg (28.0-34.0); Mean Corpuscular Volume 87.8 fl (80-94); Mean Platelet Volume 10.5 fL (7.4-10.4); Monocytes # 0.6 10^3/uL (0.2-0.9); Monocytes % 6.9 %; Neutrophils # 6.13 10^3/uL (1.8-7.7); Neutrophils % 75.2 %; Nucleated Red Blood Cells % 0 %; Platelet Count 248 10^3/cmm (130-400); Red Blood Count 5.51 10^6/uL (4.1-5.3); Red Cell Distribution Width 13.2 % (12.1-15.1); White Blood Count 8.1 10^3/uL (4.0-10.0)
[2022-01-09 18:49] LABS: Alanine Aminotransferase 43 U/L (0-41); Albumin Level 3.7 g/dL (3.5-5.2); Alkaline Phosphatase 72 U/L (40-130); Anion Gap 14.6 (5-19); Aspartate Amino Transferase 41 U/L (0-40); Blood Urea Nitrogen 13 mg/dL (6-20); Calcium 9.3 mg/dL (8.5-10.5); Carbon Dioxide 31 mmol/L (22-29); Chloride 94 mmol/L (98-107); Globulin 3.4 g/dL (1.3-4.6); Glomerular Filtration Rate 69.5 mL/min (90-130); Glucose 249 mg/dL (65-115); Lipase 29 U/L (13-60); Osmolality Calculated 290 mOsm/kg (285-295); Potassium 3.6 mmol/L (3.5-5.1); Sodium 136 mmol/L (136-145); Total Bilirubin 0.5 mg/dL (0.15-1.2); Total Protein 7.1 g/dL (6.6-8.7)
[2022-01-09] MEDS: lidocaine 2% viscous 15 ML, aluminum-mag hydrox-simethicon 30 ML, sucralfate oral liq 1 GM PO (19:02)
[2022-01-09] MEDS: ondansetron 2 mg/ML SDV 2 mL 4 MG IVP (19:03)
[2022-01-09] MEDS: sodium chloride 0.9% 1,000 ML 999 ML IV (19:03)
[2022-01-09 19:54] VITALS: BP 122/78; PULSE 88; RESP 17; O2SAT 95
== END 2022-01-09 21:01 | disposition home or self-care (01) ==
PROVIDERS: Emergency Provider Emergency Medicine; PCP Nurse Practitioner Family
DX: R10.9 Unspecified abdominal pain (principal); Z79.82 Long term (current) use of aspirin; Z79.4 Long term (current) use of insulin; I10 Essential (primary) hypertension; E11.9 Type 2 diabetes mellitus without complications; E78.5 Hyperlipidemia, unspecified
CPT/HCPCS: 36416; 74176; 80053; 82962; 83690; 85025; 93005; 96361; 96374; 99285; J2405; J7030